=== PATIENT | female | born 1955 | race Caucasian/White ===

== ENCOUNTER → 2017-07-29 | Outpatient (CLI) | payer OTHER ==
[~2017-07-29] VITALS: Ht 170.2 cm; Wt 87.5 kg
[~2017-07-29] MED LIST: ADVAIR 250/501 DISK IH; ASCORBIC ACID500 M3 PO; BUMEX1 MG PO; DEXILANT60 MG PO; ELAVIL25 MG PO; FISH OIL 1,0001 EAC7 PO; FISH OIL 1,2001 EAC4 PO; FLEXERIL10 MG PO; K-DUR20 MEQ PO; LIPITOR20 MG PO; MIRALAX17 GM PO; MOTRIN800 MG PO; MULTI VITAMIN1 EACH PO; PREMARIN0.625 MG PO; PROVENTIL17 GM IH; TESSALON PERLE100 MG PO; TORADOL10 MG PO; URECHOLINE25 MG PO; VENTOLIN HFA18 GM IH; VITAMIN B 12 PO; VITAMIN B6 PO; VITAMIN C; VITAMIN C1000 MG PO; VITAMIN D2000 UNIT PO; ZOFRAN ODT4 MG PO; ZYRTEC10 M2 PO
== END | disposition home or self-care (01) ==
LOC: AMB 09:26
PROC: 0DBN8ZX Excision of Sigmoid Colon, Via Natural or Artificial Opening Endoscopic, Diagnostic (ICD-10-PCS; principal; 2017-07-29)
DX: K64.8 Other hemorrhoids (principal); K63.5 Polyp of colon; K92.1 Melena; Z80.0 Family history of malignant neoplasm of digestive organs; J45.909 Unspecified asthma, uncomplicated; K21.9 Gastro-esophageal reflux disease without esophagitis; Z88.2 Allergy status to sulfonamides; E78.5 Hyperlipidemia, unspecified; Z87.891 Personal history of nicotine dependence
CPT/HCPCS: 88305